=== PATIENT | female | born 1945 | race Two or more races ===

== ENCOUNTER 2025-04-26 15:00 | Inpatient (IN) | payer MEDICARE, OTHER ==
[~2025-04-26] VITALS: Ht 152.4 cm; Wt 57.6 kg
[2025-04-26] MEDS ORDERED: ACETAMINOPHEN ES 500 MG TABLET ONE (15:24)
[2025-04-26] MEDS ORDERED: PIPERACI/TAZO 3.375GM/D5W 50ML PB IV ONE (15:24)
[2025-04-26] MEDS: IV NS 0.9% 1,000 ML BAG IV ONE ×2 (15:25→16:30)
[2025-04-26] MEDS: ACETAMINOPHEN 325 MG TABLET PO ONE (15:25)
[2025-04-26] MEDS: PIPERACILLIN /TAZOBACTAM 3.375 G in IV D5W 50 ML IV ONE (15:25)
[2025-04-26 15:40] LABS: PLATELET COUNT (AUTO) 160 K/uL (150-450); RED BLOOD CELL COUNT(AUTO) 4.33 MIL/uL (4.0-5.2); RED CELL DISTRIBUTION WIDTH 13.7 % (11.5-15.0); WHITE BLOOD COUNT (AUTO) 13.5 K/uL (4.3-11.0)
[2025-04-26] MEDS ORDERED: GLUC1KIT SQ (15:51)
[2025-04-26] MEDS ORDERED: NIFE-35 PO (15:51)
[2025-04-26] MEDS ORDERED: DONE5TAB7 PO (15:51)
[2025-04-26] MEDS ORDERED: APIX2.5T PO (15:51)
[2025-04-26] MEDS ORDERED: CHOL200026 PO (15:51)
[2025-04-26] MEDS ORDERED: EMPA10TA PO (15:51)
[2025-04-26] MEDS ORDERED: ATOR20TA PO (15:51)
[2025-04-26] MEDS ORDERED: ACET-868 PO (15:51)
[2025-04-26] MEDS ORDERED: AMIN30LI2 PO (15:51)
[2025-04-26] MEDS ORDERED: VIT1TABL46 PO (15:51)
[2025-04-26] MEDS ORDERED: SACU1TAB PO (15:51)
[2025-04-26] MEDS ORDERED: INSU100V28 SQ (15:51)
[2025-04-26] MEDS ORDERED: FAMO20TA80 PO (15:51)
[2025-04-26] MEDS ORDERED: DICL100G26 TP (15:51)
[2025-04-26] MEDS ORDERED: LEVO25TA7 PO (15:51)
[2025-04-26 15:54] LABS: ASPARTATE AMINOTRANSFERASE 28 U/L (15-37); CALCIUM, SERUM 8.9 mg/dL (8.5-10.1); CREATININE 3.3 mg/dL (0.6-1.3); SODIUM SERUM 133 mmol/L (136-145); TOTAL PROTEIN, SERUM 7.4 g/dL (6.4-8.2); UREA NITROGEN, BLOOD 26 mg/dL (7-18)
[2025-04-26 15:58] LABS: INR 1.12 (0.91-1.10)
[2025-04-26 15:59] LABS: LACTIC ACID 2.1 mmol/L (0.4-2.0)
[2025-04-26] MEDS: DILTIAZEM HCL 25 MG IV IV ONE (16:30)
[2025-04-26] MEDS ORDERED: HEPARIN INFUSION/D5W 0 ML IV ONE (17:01)
[2025-04-26] MEDS ORDERED: HEPARIN SODIUM, PORCINE 5000 UNITS/1 ML VIAL ONE (17:01)
[2025-04-26] MEDS ORDERED: NOREPINEPHRINE 8MG/250ML RTU 0 ML IV ONE (17:02)
[2025-04-26] MEDS ORDERED: DILTIAZEM HCL 50 MG IV ONE (17:02)
[2025-04-26] MEDS ORDERED: NOREPINEPHRINE 8MG/250ML RTU 250 ML IV ONE (17:08)
[2025-04-26] MEDS: NOREPINEPHRINE 8 MG in IV NS 0.9% 250 ML IV ONE (17:20)
[2025-04-26] MEDS: HEPARIN INFUSION/D5W 500 ML IV ONE (17:26)
[2025-04-26] MEDS: HEPARIN SODIUM, PORCINE 5000 UNITS/1 ML VIAL IV ONE (17:29)
[2025-04-26] MEDS ORDERED: ASPIRIN EC 81 MG TABLET.DR PO ONE (19:34)
[2025-04-26] MEDS: ASPIRIN 81 MG TAB.CHEW PO SCH (19:40)
[2025-04-26] MEDS ORDERED: LIDOCAINE HCL/MPF 1% 30 ML VIAL IJ ONE (20:21)
[2025-04-26] MEDS: VANCOMYCIN HCL 1 GM in IV D5W 260 ML IV ONE (20:30)
[2025-04-26] MEDS ORDERED: VANCOMYCIN 1 GM /D5W 250 ML PB IV ONE ×2 (21:04→21:05)
[2025-04-26] MEDS ORDERED: ONDANSETRON HCL/PF 4 MG/2 ML VIAL IVP PRN (22:00)
[2025-04-26] MEDS ORDERED: ACETAMINOPHEN 325 MG TABLET PO PRN (22:00)
[2025-04-26] MEDS ORDERED: PIPERACILLIN /TAZOBACTAM 3.375 G in IV D5W 50 ML IV SCH (22:00)
[2025-04-26] MEDS ORDERED: NOREPINEPHRINE 8 MG in IV NS 0.9% 250 ML IV PRN ×2 (22:00→23:30)
[2025-04-26 22:30] VITALS: BP 133/120; O2SAT 100
[2025-04-26 22:45] VITALS: BP 93/77; O2SAT 100
[2025-04-26] MEDS: BLOOD SUGAR DIAGNOSTIC 1 EACH STRIP IN SCH (22:59)
[2025-04-26 23:00] VITALS: BP 117/53; O2SAT 100
[2025-04-26] MEDS ORDERED: DOSING PER PHARMACY-VANCOMYCIN IV XX PRN (23:00)
[2025-04-26 23:15] VITALS: BP 112/69; O2SAT 100
[2025-04-26] MEDS: INSULIN REGULAR, HUMAN 100 UNIT/ML 3 ML VIAL SQ PRN (23:17)
[2025-04-26] MEDS: FUROSEMIDE 40 MG/4 ML VIAL IV ONE (23:22)
[2025-04-26 23:30] VITALS: BP 125/65; O2SAT 100
[2025-04-26] MEDS ORDERED: DICLOFENAC TOPICAL 100 GM TUBE TP PRN (23:30)
[2025-04-26 23:45] VITALS: BP 102/58; O2SAT 100
[2025-04-26] MEDS: NOREPINEPHRINE 8 MG in IV D5W 242 ML IV PRN (23:47)
[2025-04-27] VITALS (64 sets, daily range): BP systolic 70–129; BP diastolic 43–82; TEMP 97.5–97.8; O2SAT 95–100
[2025-04-27] MEDS: PIPERACILLIN /TAZOBACTAM 2.25 G in IV D5W 50 ML IV SCH (00:19)
[2025-04-27 05:37] LABS: PLATELET COUNT (AUTO) 150 K/uL (150-450); RED BLOOD CELL COUNT(AUTO) 3.97 MIL/uL (4.0-5.2); RED CELL DISTRIBUTION WIDTH 13.6 % (11.5-15.0); WHITE BLOOD COUNT (AUTO) 10.3 K/uL (4.3-11.0)
[2025-04-27 05:52] LABS: CALCIUM, SERUM 8.1 mg/dL (8.5-10.1); CREATININE 3.9 mg/dL (0.6-1.3); SODIUM SERUM 137.0 mmol/L (136-145); UREA NITROGEN, BLOOD 32.0 mg/dL (7-18)
[2025-04-27 05:53] LABS: PHOSPHORUS 4.5 mg/dL (2.5-4.9)
[2025-04-27 07:08] LABS: LDL 84.0 mg/dL (0-99)
[2025-04-27] MEDS: LEVOTHYROXINE SODIUM 25 MCG TABLET PO SCH (07:30)
[2025-04-27] MEDS: PANTOPRAZOLE 40 MG TABLET.DR PO SCH (07:30)
[2025-04-27] MEDS: CHOLECALCIFEROL 1,000 UNIT TABLET (VIT D3) PO SCH (08:55)
[2025-04-27] MEDS: VIT B CMPLX 3/FA/VIT C/BIOTIN 1 TAB TABLET PO SCH (08:56)
[2025-04-27] MEDS: EMPAGLIFLOZIN 10 MG TABLET PO SCH (08:57)
[2025-04-27] MEDS: ASPIRIN 81 MG TAB.CHEW PO SCH (08:57)
[2025-04-27] MEDS: APIXABAN 2.5 MG TABLET PO SCH (08:57)
[2025-04-27] MEDS: PROSOURCE / PROSTAT (PYXIS) 30 ML UDC PO SCH (09:11)
[2025-04-27] MEDS: ZOSYN IVPB 2.25 G in IV D5W 50ml IV SCH (12:00)
[2025-04-27] MEDS: DONEPEZIL 5 MG TABLET PO SCH (21:16)
[2025-04-27] MEDS: ATORVASTATIN 10 MG TABLET PO SCH (21:20)
[2025-04-28] VITALS (55 sets, daily range): BP systolic 91–130; BP diastolic 39–105; TEMP 96.8–97.2; O2SAT 92–100
[2025-04-28 05:11] LABS: PLATELET COUNT (AUTO) 162 K/uL (150-450); RED BLOOD CELL COUNT(AUTO) 3.97 MIL/uL (4.0-5.2); RED CELL DISTRIBUTION WIDTH 13.0 % (11.5-15.0); WHITE BLOOD COUNT (AUTO) 7.2 K/uL (4.3-11.0)
[2025-04-28 05:19] LABS: CALCIUM, SERUM 8.5 mg/dL (8.5-10.1); CREATININE 3.1 mg/dL (0.6-1.3); SODIUM SERUM 137 mmol/L (136-145); UREA NITROGEN, BLOOD 24 mg/dL (7-18)
[2025-04-28] MEDS: HYDROCORTISONE SOD SUCCINATE 100 MG/2 ML VIAL IV SCH (08:00)
[2025-04-29] VITALS (64 sets, daily range): BP systolic 74–133; BP diastolic 36–97; TEMP 96.8–97.8; O2SAT 77–100
[2025-04-29 04:45] LABS: PLATELET COUNT (AUTO) 183 K/uL (150-450); RED BLOOD CELL COUNT(AUTO) 4.11 MIL/uL (4.0-5.2); RED CELL DISTRIBUTION WIDTH 13.4 % (11.5-15.0); WHITE BLOOD COUNT (AUTO) 8.2 K/uL (4.3-11.0)
[2025-04-29 04:58] LABS: CALCIUM, SERUM 8.6 mg/dL (8.5-10.1); CREATININE 3.6 mg/dL (0.6-1.3); PHOSPHORUS 4.5 mg/dL (2.5-4.9); SODIUM SERUM 138.0 mmol/L (136-145); UREA NITROGEN, BLOOD 36.0 mg/dL (7-18)
[2025-04-29] MEDS: PIPERCILLIN/TAZOBACTAM 2.25GM/D5W 50MLPB IV ONE ×2 (08:18)
[2025-04-29] MEDS: PIPERACILLIN /TAZOBACTAM 2.25 G in IV D5W 50 ML IV SCH (13:20)
[2025-04-29] MEDS: LIDOCAINE HCL/MPF 1% 30 ML VIAL IJ ONE (17:58)
[2025-04-29] MEDS: LIDOCAINE HCL/PF 1% 30 ML SDV IJ ONE (17:58)
[2025-04-29] MEDS: VANCOMYCIN POST DIALYSIS 500MG IV PRN (20:37)
[2025-04-29] MEDS: PROSOURCE / PROSTAT (PYXIS) 30 ML UDC PO SCH (21:00)
[2025-04-29] MEDS: APIXABAN 2.5 MG TABLET PO SCH (21:44)
[2025-04-30] VITALS (35 sets, daily range): BP systolic 92–138; BP diastolic 40–107; TEMP 97.5–98.2; O2SAT 93–100
[2025-04-30 05:03] LABS: PLATELET COUNT (AUTO) 181 K/uL (150-450); RED BLOOD CELL COUNT(AUTO) 3.86 MIL/uL (4.0-5.2); RED CELL DISTRIBUTION WIDTH 13.5 % (11.5-15.0); WHITE BLOOD COUNT (AUTO) 7.5 K/uL (4.3-11.0)
[2025-04-30 05:33] LABS: CALCIUM, SERUM 8.2 mg/dL (8.5-10.1); CREATININE 2.4 mg/dL (0.6-1.3); SODIUM SERUM 137.0 mmol/L (136-145); UREA NITROGEN, BLOOD 19.0 mg/dL (7-18)
[2025-04-30] MEDS: LOPERAMIDE HCL (2 MG CAP) 2 MG CAPSULE PO PRN (20:30)
[2025-05-01] VITALS (7 sets, daily range): BP systolic 108–158; BP diastolic 46–88; TEMP 97.3–98.4; O2SAT 90–99
[2025-05-01 05:45] LABS: CALCIUM, SERUM 8.8 mg/dL (8.5-10.1); CREATININE 4.0 mg/dL (0.6-1.3); SODIUM SERUM 137 mmol/L (136-145); UREA NITROGEN, BLOOD 39 mg/dL (7-18)
[2025-05-01] MEDS: CEFAZOLIN 2 GM in IV D5W 100 ML IV SCH (10:40)
[2025-05-02] VITALS: BP_SYST 117; BP_SYST 157; BP_DIAS 73; BP_DIAS 93; TEMP 97.7; TEMP 98.4; O2SAT 98; O2SAT 99
[2025-05-02 04:00] VITALS: BP 114/53; TEMP 97.3; O2SAT 99
[2025-05-02 06:25] LABS: CALCIUM, SERUM 8.5 mg/dL (8.5-10.1); CREATININE 4.7 mg/dL (0.6-1.3); SODIUM SERUM 138.0 mmol/L (136-145); UREA NITROGEN, BLOOD 64.0 mg/dL (7-18)
[2025-05-02 08:20] VITALS: BP 126/98; TEMP 97.6; O2SAT 97
[2025-05-02 12:20] VITALS: BP 123/95; TEMP 97.6; O2SAT 96
[2025-05-02 16:20] VITALS: BP 117/58; TEMP 97.8; O2SAT 97
[2025-05-02 20:04] VITALS: BP 148/59; TEMP 97; O2SAT 99
[2025-05-03] VITALS: BP 125/87; TEMP 96.8; O2SAT 99
[2025-05-03 04:35] VITALS: BP 127/84; TEMP 96.8; O2SAT 99
[2025-05-03 07:14] LABS: CALCIUM, SERUM 8.2 mg/dL (8.5-10.1); CREATININE 2.8 mg/dL (0.6-1.3); UREA NITROGEN, BLOOD 31.0 mg/dL (7-18)
[2025-05-03 07:33] LABS: SODIUM SERUM 140.0 mmol/L (136-145)
[2025-05-03 08:00] VITALS: BP 127/55; TEMP 97.8; O2SAT 96
[2025-05-03] MEDS ORDERED: POTASSIUM CHLORIDE 20 MEQ TAB.PRT.SR PO SCH (09:00)
[2025-05-03] MEDS: POTASSIUM CHLORIDE 20 MEQ TAB.PRT.SR PO ONE (09:51)
[2025-05-03 12:00] VITALS: BP 119/66; TEMP 97.1; O2SAT 99
[2025-05-03 16:00] VITALS: BP 121/46; TEMP 98.1; O2SAT 97
[2025-05-03 16:28] LABS: CALCIUM, SERUM 8.2 mg/dL (8.5-10.1); CREATININE 3.6 mg/dL (0.6-1.3); SODIUM SERUM 140.0 mmol/L (136-145); UREA NITROGEN, BLOOD 42.0 mg/dL (7-18)
[2025-05-03 20:00] VITALS: BP 119/90; TEMP 97.9; O2SAT 95
[2025-05-04] VITALS: BP 131/57; TEMP 96.4; O2SAT 98
[2025-05-04 04:00] VITALS: BP 119/55; TEMP 96.8; O2SAT 99
[2025-05-04 06:51] LABS: CALCIUM, SERUM 8.4 mg/dL (8.5-10.1); CREATININE 3.8 mg/dL (0.6-1.3); PHOSPHORUS 4.7 mg/dL (2.5-4.9); SODIUM SERUM 141.0 mmol/L (136-145); UREA NITROGEN, BLOOD 55.0 mg/dL (7-18)
[2025-05-04 07:14] LABS: PLATELET COUNT (AUTO) 299 K/uL (150-450); RED BLOOD CELL COUNT(AUTO) 4.28 MIL/uL (4.0-5.2); RED CELL DISTRIBUTION WIDTH 13.8 % (11.5-15.0); WHITE BLOOD COUNT (AUTO) 13.6 K/uL (4.3-11.0)
[2025-05-04 08:00] VITALS: BP 127/56; TEMP 97.7; O2SAT 99
[2025-05-04 12:00] VITALS: BP 139/61; TEMP 98.1; O2SAT 97
[2025-05-04 16:00] VITALS: BP 137/61; TEMP 98.2; O2SAT 100
[2025-05-04 20:00] VITALS: BP 103/73; TEMP 97.7; O2SAT 96
[2025-05-05] VITALS (9 sets, daily range): BP systolic 103–136; BP diastolic 45–91; TEMP 97.3–98.3; O2SAT 94–100
[2025-05-05 13:11] LABS: ASPARTATE AMINOTRANSFERASE 51.0 U/L (15-37); CALCIUM, SERUM 8.5 mg/dL (8.5-10.1); CREATININE 3.3 mg/dL (0.6-1.3); SODIUM SERUM 138.0 mmol/L (136-145); TOTAL PROTEIN, SERUM 7.2 g/dL (6.4-8.2); UREA NITROGEN, BLOOD 41.0 mg/dL (7-18)
[2025-05-05] MEDS ORDERED: LIDOCAINE HCL/MPF 1% 30 ML VIAL IJ ONE (13:11)
[2025-05-05] MEDS ORDERED: HEPARIN SODIUM, PORCINE 1,000 UNIT/ML VIAL ONE (13:11)
[2025-05-05] MEDS ORDERED: FAMOTIDINE/PF INJ 20 MG/2 ML VIAL IV ONE (13:35)
[2025-05-05] MEDS ORDERED: MIDAZOLAM HCL 2 MG/2ML VIAL ONE (13:35)
[2025-05-05] MEDS ORDERED: FENTANYL PF 100MCG/2ML AMPUL ONE (13:35)
[2025-05-06 04:00] VITALS: BP 144/61; TEMP 98; O2SAT 97
[2025-05-06 05:53] LABS: PLATELET COUNT (AUTO) 331 K/uL (150-450); RED BLOOD CELL COUNT(AUTO) 4.55 MIL/uL (4.0-5.2); RED CELL DISTRIBUTION WIDTH 13.8 % (11.5-15.0); WHITE BLOOD COUNT (AUTO) 15.9 K/uL (4.3-11.0)
[2025-05-06 05:59] LABS: CALCIUM, SERUM 8.5 mg/dL (8.5-10.1); CREATININE 3.9 mg/dL (0.6-1.3); PHOSPHORUS 5.8 mg/dL (2.5-4.9); SODIUM SERUM 139 mmol/L (136-145); UREA NITROGEN, BLOOD 55 mg/dL (7-18)
[2025-05-06 08:00] VITALS: BP 151/52; TEMP 97.5; O2SAT 98
[2025-05-06] MEDS: PROSOURCE / PROSTAT (PYXIS) 30 ML UDC PO SCH (08:49)
[2025-05-06] MEDS: METOPROLOL TARTRATE 50 MG TABLET PO SCH (09:42)
[2025-05-06 16:00] VITALS: BP 136/116; TEMP 97.9; O2SAT 99
[2025-05-07] VITALS: BP 121/50; TEMP 97.3; O2SAT 98
[2025-05-07 05:51] LABS: PLATELET COUNT (AUTO) 252 K/uL (150-450); RED BLOOD CELL COUNT(AUTO) 4.21 MIL/uL (4.0-5.2); RED CELL DISTRIBUTION WIDTH 13.7 % (11.5-15.0); WHITE BLOOD COUNT (AUTO) 16.2 K/uL (4.3-11.0)
[2025-05-07 05:58] LABS: CALCIUM, SERUM 8.1 mg/dL (8.5-10.1); CREATININE 2.7 mg/dL (0.6-1.3); SODIUM SERUM 142.0 mmol/L (136-145); UREA NITROGEN, BLOOD 40.0 mg/dL (7-18)
[2025-05-07 08:00] VITALS: BP 115/40; TEMP 97.8; O2SAT 96
[2025-05-07] MEDS ORDERED: IV NS 0.9% 250 ML IV ONE (11:17)
[2025-05-07] MEDS ORDERED: IOHEXOL-350 100 ML VIAL IV ONE (11:17)
[2025-05-07] MEDS ORDERED: NITROGLYCERIN 0.4 MG/TAB BOTTLE ONE (11:54)
[2025-05-07] MEDS: NITROGLYCERIN 0.4 MG/TAB BOTTLE SL ONE (11:58)
[2025-05-07] MEDS: METOPROLOL TARTRATE 50 MG TABLET PO SCH (12:59)
[2025-05-07 16:00] VITALS: BP 117/50; TEMP 97.7; O2SAT 94
[2025-05-07 20:00] VITALS: BP 120/60; TEMP 98.2; O2SAT 98
[2025-05-07] MEDS: HYDROCORTISONE SOD SUCCINATE 100 MG/2 ML VIAL IV SCH (21:15)
[2025-05-08] VITALS: BP 117/62; TEMP 98.2; O2SAT 97
[2025-05-08 04:00] VITALS: BP 115/60; TEMP 98; O2SAT 98
[2025-05-08 06:16] LABS: PLATELET COUNT (AUTO) 211 K/uL (150-450); RED BLOOD CELL COUNT(AUTO) 3.88 MIL/uL (4.0-5.2); RED CELL DISTRIBUTION WIDTH 13.8 % (11.5-15.0); WHITE BLOOD COUNT (AUTO) 15.9 K/uL (4.3-11.0)
[2025-05-08 06:22] LABS: CALCIUM, SERUM 8.0 mg/dL (8.5-10.1); CREATININE 2.9 mg/dL (0.6-1.3); SODIUM SERUM 139.0 mmol/L (136-145); UREA NITROGEN, BLOOD 49.0 mg/dL (7-18)
[2025-05-08 08:00] VITALS: BP 113/45; TEMP 97.8; O2SAT 98
[2025-05-08 09:08] LABS: HEPATITIS B CORE AB, TOTAL Negative (Negative); HEPATITIS B SURFACE AB (QUAL) Non Reactive (.)
[2025-05-08 16:00] VITALS: BP 122/42; TEMP 98.1; O2SAT 98
[2025-05-08 18:20] VITALS: BP 98/79
[2025-05-08 20:00] VITALS: BP 106/48; TEMP 98.4; O2SAT 100
[2025-05-09 04:00] VITALS: BP 104/50; TEMP 97.9; O2SAT 99
[2025-05-09 06:16] LABS: CALCIUM, SERUM 7.9 mg/dL (8.5-10.1); CREATININE 4.0 mg/dL (0.6-1.3); SODIUM SERUM 138.0 mmol/L (136-145); UREA NITROGEN, BLOOD 69.0 mg/dL (7-18)
[2025-05-09 06:49] LABS: PLATELET COUNT (AUTO) 204 K/uL (150-450); RED BLOOD CELL COUNT(AUTO) 3.94 MIL/uL (4.0-5.2); RED CELL DISTRIBUTION WIDTH 15.2 % (11.5-15.0); WHITE BLOOD COUNT (AUTO) 14.9 K/uL (4.3-11.0)
[2025-05-09 08:00] VITALS: BP 127/62; TEMP 98.1; O2SAT 100
[2025-05-09] MEDS: HYDROCORTISONE SOD SUCCINATE 100 MG/2 ML VIAL IV SCH (09:05)
[2025-05-09 12:00] VITALS: BP 127/62; TEMP 98.1; O2SAT 100
[2025-05-09 16:00] VITALS: BP 114/52; TEMP 98.6; O2SAT 98
[2025-05-09 20:00] VITALS: BP 125/61; TEMP 98.8; O2SAT 97
[2025-05-10] VITALS: BP 114/53; TEMP 98.2; O2SAT 99
[2025-05-10 04:00] VITALS: BP 100/45; TEMP 97.7; O2SAT 98
[2025-05-10 06:17] LABS: PLATELET COUNT (AUTO) 190 K/uL (150-450); RED BLOOD CELL COUNT(AUTO) 3.69 MIL/uL (4.0-5.2); RED CELL DISTRIBUTION WIDTH 14.2 % (11.5-15.0); WHITE BLOOD COUNT (AUTO) 14.3 K/uL (4.3-11.0)
[2025-05-10 06:41] LABS: CALCIUM, SERUM 8.0 mg/dL (8.5-10.1); CREATININE 4.0 mg/dL (0.6-1.3); SODIUM SERUM 136.0 mmol/L (136-145); UREA NITROGEN, BLOOD 60.0 mg/dL (7-18)
[2025-05-10 08:00] VITALS: BP 92/50; TEMP 97.7; O2SAT 99
[2025-05-10] MEDS: FLUDROCORTISONE 0.1 MG TABLET PO SCH (09:31)
[2025-05-10 12:00] VITALS: BP 92/54; TEMP 98; O2SAT 94
[2025-05-10 16:00] VITALS: BP 100/49; TEMP 98.1; O2SAT 95
[2025-05-10 20:00] VITALS: BP 108/49; TEMP 98; O2SAT 97
[2025-05-11] VITALS: BP 102/51; TEMP 97.7; O2SAT 98
[2025-05-11 04:00] VITALS: BP 101/44; TEMP 97.3; O2SAT 96
[2025-05-11 08:00] VITALS: BP 100/89; TEMP 97.3; O2SAT 100
[2025-05-11 10:14] LABS: PLATELET COUNT (AUTO) 181 K/uL (150-450); RED BLOOD CELL COUNT(AUTO) 3.73 MIL/uL (4.0-5.2); RED CELL DISTRIBUTION WIDTH 14.1 % (11.5-15.0); WHITE BLOOD COUNT (AUTO) 12.6 K/uL (4.3-11.0)
[2025-05-11 10:29] LABS: CALCIUM, SERUM 7.7 mg/dL (8.5-10.1); CREATININE 5.0 mg/dL (0.6-1.3); SODIUM SERUM 132.0 mmol/L (136-145); UREA NITROGEN, BLOOD 73.0 mg/dL (7-18)
[2025-05-11 12:00] VITALS: BP 102/52; TEMP 97.3; O2SAT 100
[2025-05-11 16:00] VITALS: BP 122/42; TEMP 97.3; O2SAT 100
[2025-05-11] MEDS: DEXTROSE 50%-WATER 50 ML DISP.SYRIN IV PRN (17:21)
[2025-05-11 20:00] VITALS: BP 109/41; TEMP 98.6; O2SAT 100
[2025-05-12] VITALS: BP 105/44; TEMP 98.8; O2SAT 100
[2025-05-12 04:00] VITALS: BP 139/69; TEMP 98.6; O2SAT 100
[2025-05-12 06:29] LABS: PLATELET COUNT (AUTO) 176 K/uL (150-450); RED BLOOD CELL COUNT(AUTO) 4.16 MIL/uL (4.0-5.2); RED CELL DISTRIBUTION WIDTH 13.8 % (11.5-15.0); WHITE BLOOD COUNT (AUTO) 12.4 K/uL (4.3-11.0)
[2025-05-12 07:12] LABS: CALCIUM, SERUM 8.0 mg/dL (8.5-10.1); CREATININE 4.0 mg/dL (0.6-1.3); SODIUM SERUM 133.0 mmol/L (136-145); UREA NITROGEN, BLOOD 44.0 mg/dL (7-18)
[2025-05-12 08:00] VITALS: BP 129/52; TEMP 97.5; O2SAT 100
[2025-05-12] MEDS: POTASSIUM CHLORIDE 20 MEQ TAB.PRT.SR PO ONE (10:17)
[2025-05-12 20:00] VITALS: BP 122/47; TEMP 97.7; O2SAT 100
[2025-05-13] VITALS: BP 108/70; TEMP 97.8; O2SAT 97
[2025-05-13 04:00] VITALS: BP 125/53; TEMP 97.9; O2SAT 97
[2025-05-13 05:59] LABS: PLATELET COUNT (AUTO) 175 K/uL (150-450); RED BLOOD CELL COUNT(AUTO) 3.19 MIL/uL (4.0-5.2); RED CELL DISTRIBUTION WIDTH 13.6 % (11.5-15.0); WHITE BLOOD COUNT (AUTO) 9.7 K/uL (4.3-11.0)
[2025-05-13 06:00] LABS: CALCIUM, SERUM 8.2 mg/dL (8.5-10.1); CREATININE 5.0 mg/dL (0.6-1.3); SODIUM SERUM 137.0 mmol/L (136-145); UREA NITROGEN, BLOOD 56.0 mg/dL (7-18)
[2025-05-13 08:00] VITALS: BP 95/52; TEMP 97.7; O2SAT 99
[2025-05-13] MEDS: ALBUMIN 25% 25 GM in PREMIX 1 EA IV PRN (11:42)
[2025-05-13 12:00] VITALS: BP 123/101; TEMP 97.5; O2SAT 97
[2025-05-13 16:00] VITALS: BP 105/43; TEMP 98.5; O2SAT 99
[2025-05-13 20:00] VITALS: BP 96/41; TEMP 97.9; O2SAT 98
[2025-05-14] VITALS: BP 96/41; TEMP 97.9; O2SAT 98
[2025-05-14 04:00] VITALS: BP 111/51; TEMP 98.1; O2SAT 93
[2025-05-14 06:17] LABS: PLATELET COUNT (AUTO) 130 K/uL (150-450); RED BLOOD CELL COUNT(AUTO) 2.80 MIL/uL (4.0-5.2); RED CELL DISTRIBUTION WIDTH 14.6 % (11.5-15.0); WHITE BLOOD COUNT (AUTO) 9.4 K/uL (4.3-11.0)
[2025-05-14 06:32] LABS: ASPARTATE AMINOTRANSFERASE 30 U/L (15-37); CALCIUM, SERUM 7.8 mg/dL (8.5-10.1); CREATININE 3.7 mg/dL (0.6-1.3); PHOSPHORUS 4.2 mg/dL (2.5-4.9); SODIUM SERUM 136 mmol/L (136-145); TOTAL PROTEIN, SERUM 5.8 g/dL (6.4-8.2); UREA NITROGEN, BLOOD 34 mg/dL (7-18)
[2025-05-14 08:00] VITALS: BP 95/44; TEMP 97.9; O2SAT 99
[2025-05-14] MEDS: HYDROCORTISONE SOD SUCCINATE 100 MG/2 ML VIAL IV SCH (09:07)
[2025-05-14 12:00] VITALS: BP 95/44; TEMP 97.9; O2SAT 99
[2025-05-14] MEDS: EPOETIN ALFA-EPBX 4,000 UNIT/ML VIAL SQ SCH (14:10)
[2025-05-14] MEDS ORDERED: Z GUARD REMEDY 4 OZ OINT TP PRN (14:30)
[2025-05-14 16:00] VITALS: BP 103/47; TEMP 98.1; O2SAT 95
[2025-05-14 20:00] VITALS: BP 100/46; TEMP 98.1; O2SAT 98
== END 2025-05-14 22:59 | DRG 280 ==
LOC: ER 15:03 → TELE 16:43 → ICU 21:42 → TELE1 04-30 11:05 → MEDSG1 05-05 09:58 → TELE1 05-09 18:18 → MEDSG1 05-13 18:50
PROVIDERS: ADMIT Registered Nurse Psychiatric/Mental Health; ATTEND Internal Medicine
PROC: 02HV33Z Insertion of Infusion Device into Superior Vena Cava, Percutaneous Approach (ICD-10-PCS; 2025-04-26)
PROC: 5A1D70Z Performance of Urinary Filtration, Intermittent, Less than 6 Hours Per Day (ICD-10-PCS; principal; 2025-04-27)
PROC: 06HY33Z Insertion of Infusion Device into Lower Vein, Percutaneous Approach (ICD-10-PCS; 2025-05-02)
PROC: 0JH63XZ Insertion of Tunneled Vascular Access Device into Chest Subcutaneous Tissue and Fascia, Percutaneous Approach (ICD-10-PCS; 2025-05-05)
PROC: 05HM33Z Insertion of Infusion Device into Right Internal Jugular Vein, Percutaneous Approach (ICD-10-PCS; 2025-05-05)
PROC: B513YZA Fluoroscopy of Right Jugular Veins using Other Contrast, Guidance (ICD-10-PCS; 2025-05-05)
DX: T80.211A Bloodstream infection due to central venous catheter, initial encounter (principal); A41.01 Sepsis due to Methicillin susceptible Staphylococcus aureus; I21.A1 Myocardial infarction type 2; N18.6 End stage renal disease; I50.33 Acute on chronic diastolic (congestive) heart failure; R65.21 Severe sepsis with septic shock; G92.8 Other toxic encephalopathy; E44.1 Mild protein-calorie malnutrition; I13.2 Hypertensive heart and chronic kidney disease with heart failure and with stage 5 chronic kidney disease, or end stage renal disease; E87.1 Hypo-osmolality and hyponatremia; E87.20 Acidosis, unspecified; L97.329 Non-pressure chronic ulcer of left ankle with unspecified severity; L97.319 Non-pressure chronic ulcer of right ankle with unspecified severity; E11.65 Type 2 diabetes mellitus with hyperglycemia; E11.22 Type 2 diabetes mellitus with diabetic chronic kidney disease; Y84.8 Other medical procedures as the cause of abnormal reaction of the patient, or of later complication, without mention of misadventure at the time of the procedure; Y92.9 Unspecified place or not applicable; Z20.822 Contact with and (suspected) exposure to COVID-19; D63.1 Anemia in chronic kidney disease; E03.9 Hypothyroidism, unspecified; Z79.890 Hormone replacement therapy; Z79.4 Long term (current) use of insulin; Z79.84 Long term (current) use of oral hypoglycemic drugs; Z79.01 Long term (current) use of anticoagulants; Z79.899 Other long term (current) drug therapy; E88.09 Other disorders of plasma-protein metabolism, not elsewhere classified; I25.10 Atherosclerotic heart disease of native coronary artery without angina pectoris; I27.20 Pulmonary hypertension, unspecified; I48.91 Unspecified atrial fibrillation; M81.0 Age-related osteoporosis without current pathological fracture; Z84.1 Family history of disorders of kidney and ureter; Z99.2 Dependence on renal dialysis; E87.6 Hypokalemia; I35.0 Nonrheumatic aortic (valve) stenosis; Z66 Do not resuscitate; N25.0 Renal osteodystrophy; E11.622 Type 2 diabetes mellitus with other skin ulcer; M89.8X9 Other specified disorders of bone, unspecified site
CPT/HCPCS: 36415; 70450-TC; 71045-TC; 74018; 75574; 80048-TC; 80053-TC; 80061-TC; 80076-TC; 80202-TC; 82533; 82962-TC; 83605-TC; 83735-TC; 83880; 84100-TC; 84443-TC; 84484-TC; 85025-TC; 85730-TC; 86704; 86706; 87040-TC; 87070-TC; 87081-TC; 87340; 90935-TC; 93307-TC; A4216; A4223; C1750; G0378; J0690; J0885; J1308; J1644; J1720; J1815; J1938; J2250; J2405; J2543; J2704; J3010; J3373; J3490; J7030; J7050; J7060; P9047; Q9967